=== PATIENT | female | born 1975 | race Caucasian/White ===

== ENCOUNTER → 2016-05-29 | Outpatient (CLI) | payer BC ==
[~2016-05-29] MED LIST: DULO60CA6 PO; FLUO20CA25; PREN1TAB39; TRINESSA PO
--- NOTE | 2016-05-29 19:18 | Diagnostic Imaging Report ---
EXAMINATION: Digital mammogram bilateral screening. INDICATION: Screening. This is the patient's baseline study. At this time, there are no current complaints. The current study was also evaluated with a Computer Aided Detection (CAD) system. FINDINGS: The fibroglandular tissue in both breasts is dense. This does limit the sensitivity of this exam. On the craniocaudad view of the left breast in the mid lateral portion of the breast, roughly 7 cm from the nipple, there is a 2 cm rounded density. This appears to be in the superior portion of the breast on the MLO view. There is another smaller 1.2 cm bilobed nodular density in the medial retroareolar region of the right breast. I suspect that these findings are related to cysts. Even so, as there are no prior studies available for comparison, I would recommend that compression views of both of these areas be obtained in the CC and MLO projections for further study. Ultrasound should also be performed. The right breast is unremarkable. IMPRESSION: Additional mammographic views and ultrasound of the left breast should be obtained for further study. ACR BI-RADS Category 0: Incomplete. (Needs additional imaging evaluation). Result letter will be mailed to the patient. Note: At least 10% of breast cancer is not imaged by mammography. Dictated by: Dictated on workstation # [id number]
== END ==
LOC: RAD 07:00
PROVIDERS: ATTEND Family Medicine
DX: Z12.31 Encounter for screening mammogram for malignant neoplasm of breast (principal)
CPT/HCPCS: 77067

== ENCOUNTER → 2016-06-04 | Outpatient (CLI) | payer BC ==
--- NOTE | 2016-06-04 08:47 | Diagnostic Imaging Report ---
Left breast ultrasound. INDICATION: Left breast asymmetries seen on mammography. FINDINGS: At 1:30 o'clock position 2 cm from the nipple, there is a 1.6 x 0.8 x 1.2-cm hypoechoic lesion with lobulated margins. There is no definite internal vascularity seen. There is slight heterogeneity seen in its echotexture. This could be a fibroadenoma. At 1:30 o'clock position 6 cm from the nipple, there is a 2.3 x 1.6 x 2.0-cm lobulated hypoechoic lesion. This could be a complicated cyst; however, through transmission is not well demonstrated. No internal blood flow with color Doppler is seen. The four quadrants and retroareolar region otherwise demonstrate no other lesions. IMPRESSION: Indeterminate lesions, one located at 10:30 o'clock position 2 cm from the nipple favored to be a fibroadenoma and another lesion at 1:30 o'clock position 6 cm from the nipple questioned to be a complicated cyst versus fibroadenoma. The features are not definitive, and ultrasound-guided biopsy evaluation is recommended. The findings were discussed personally with the patient. ACR BI-RADS Category 4A: Low suspicion of malignancy. Result letter will be mailed to the patient. Note: At least 10% of breast cancer is not imaged by mammography. Report was stat faxed to office of Dr. Gentile @ 9:45 AM/brittany. Dictated by: Dictated on workstation # [id number]
--- NOTE | 2016-06-04 14:22 | Diagnostic Imaging Report ---
Left breast diagnostic mammogram. The current study was also evaluated with a Computer Aided Detection (CAD) system. INDICATION: Two asymmetries seen on the mammogram from 05/29/2016. FINDINGS: Focal asymmetries are evaluated with focal compression views and lateral views. These appear to correlate with circumscribed nodules in the central aspect of the left breast. These are partially obscured however by adjacent fibroglandular tissues. IMPRESSION: Underlying lesions are partially obscured by adjacent dense parenchyma. The visualized portion of the margin on these lesions is circumscribed in favor of benign etiology. Ultrasound evaluation pending. ACR BI-RADS Category 0: Incomplete. (Needs additional imaging evaluation). Result letter will be mailed to the patient. Note: At least 10% of breast cancer is not imaged by mammography. Dictated by: Dictated on workstation # [id number]
== END ==
LOC: RAD 07:23
PROVIDERS: ATTEND Family Medicine
DX: R92.8 Other abnormal and inconclusive findings on diagnostic imaging of breast (principal)
CPT/HCPCS: 76641

== ENCOUNTER → 2016-06-12 | Outpatient (CLI) | payer BC ==
[~2016-06-12] VITALS: Ht 172.7 cm; Wt 106.6 kg
[~2016-06-12] MED LIST changes: +LIDOCAINE 1% INJ 20 ML (XYLOCAINE) VIAL INJ ONE; +LIDOCAINE 1% INJ 20 ML (XYLOCAINE) VIAL ONE
[2016-06-12 10:04] VITALS: BP 128/87
--- NOTE | 2016-06-12 14:35 | Diagnostic Imaging Report ---
EXAMINATION: Ultrasound-guided biopsy of a breast mass. A metallic clip placed to steve biopsy site. INDICATION: Left breast mass. One lesion is at 10:30 o'clock position and the another lesion is the at the 1:30 position, both appear solid and indeterminate. CONSENT: Informed consent was obtained from the patient. The risks, benefits, potential complications and alternatives were reviewed and all questions answered to the patient's satisfaction. FINDINGS: Ultrasound images demonstrate a 10:30 o'clock position left breast mass at 2 CM from the nipple. PROCEDURE: After sterile preparation and draping, 1% lidocaine was utilized for local anesthesia. A 13-gauge guide needle was introduced under live ultrasound guidance to the level of the lesion. Good needle position was documented with ultrasound images. 14-gauge biopsy needle was utilized and core biopsies were performed. Multiple samples were obtained and sent to pathology. A metallic clip was placed to steve the site of the biopsy. A subsequent mammogram is performed and confirms the proper positioning of the clip. The patient tolerated the procedure well with no immediate complications. IMPRESSION: Successful ultrasound-guided core biopsy of 10:30 o'clock position, 2 CM from the nipple, left breast mass. Dictated by: Dictated on workstation # [id number]
--- NOTE | 2016-06-12 14:41 | Diagnostic Imaging Report ---
EXAMINATION: Ultrasound-guided biopsy of a breast mass. A metallic clip placed to steve biopsy site. INDICATION: Left breast masses. One lesion is at 10:30 o'clock position and the another lesion is the at the 1:30 position, both appear solid and indeterminate. CONSENT: Informed consent was obtained from the patient. The risks, benefits, potential complications and alternatives were reviewed and all questions answered to the patient's satisfaction. FINDINGS: Ultrasound images demonstrate a solid mass at 1:30 o'clock position 6 CM from the nipple.. PROCEDURE: After sterile preparation and draping, 1% lidocaine was utilized for local anesthesia. A 13-gauge guide needle was introduced under live ultrasound guidance to the level of the lesion. Good needle position was documented with ultrasound images. 14-gauge biopsy needle was utilized and core biopsies were performed. Multiple samples were obtained and sent to pathology. A metallic clip was placed to steve the site of the biopsy. A subsequent mammogram is performed and confirms the proper positioning of the clip. The patient tolerated the procedure well with no immediate complications. IMPRESSION: Successful ultrasound-guided core biopsy of 1:30 o'clock position left breast mass. Dictated by: Dictated on workstation # [id number]
--- NOTE | 2016-06-27 22:39 | Diagnostic Imaging Report ---
EXAM: CC and lateral views of the left breast. INDICATION: Documentation of clip position after ultrasound-guided biopsy of a lesion at 1:30 o'clock position. FINDINGS: Satisfactory clip position is the seen within mass in the central lateral aspect of the left breast. Pathology results are pending. IMPRESSION: BI-RADS 0. ACR BI-RADS Category 0: Incomplete. (Needs additional imaging evaluation). Result letter will be mailed to the patient. Note: At least 10% of breast cancer is not imaged by mammography. Dictated by: Dictated on workstation # [id number]
== END ==
LOC: RAD 09:45
PROVIDERS: ATTEND Family Medicine
DX: N63 Unspecified lump in breast (principal)
CPT/HCPCS: 19083; 19084; 88305

== ENCOUNTER → 2016-11-29 | Outpatient (CLI) | payer BC ==
[~2016-11-29] MED LIST changes: -LIDOCAINE 1% INJ 20 ML (XYLOCAINE) VIAL INJ ONE; -LIDOCAINE 1% INJ 20 ML (XYLOCAINE) VIAL ONE
--- NOTE | 2016-11-29 22:04 | Diagnostic Imaging Report ---
Left breast diagnostic mammogram. The current study was also evaluated with a Computer Aided Detection (CAD) system. INDICATION: Six-month follow-up exam after biopsy. COMPARISON: 06/12/2016. FINDINGS: The left breast is composed of heterogeneously dense parenchyma which may decrease mammographic sensitivity. There are 2 biopsy clips seen at the site of nodules noted without significant change. These are biopsy-proven fibroadenomas. 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 Annual screening mammogram is recommended. ACR BI-RADS Category 2: Benign findings. Result letter will be mailed to the patient. Note: At least 10% of breast cancer is not imaged by mammography. Dictated by: Dictated on workstation # [id number]
== END ==
LOC: RAD 07:06
PROVIDERS: ATTEND Family Medicine
DX: D24.2 Benign neoplasm of left breast (principal)

== ENCOUNTER → 2017-05-07 | Outpatient (CLI) | payer BC ==
[~2017-05-07] MED LIST changes: +CATHETER FLUSH 10 ML SYR IV PRN; +IOHEXOL 350 MG/ML 100 ML (OMNIPAQUE 350) VIAL IV ONE; +NS 250 ML (IVPB) BAG IV ONE
--- NOTE | 2017-05-07 14:38 | Diagnostic Imaging Report ---
EXAMINATION: Bilateral breast ultrasound, limited. INDICATION: Left breast mass, right breast pain. FINDINGS: The diagnostic mammogram performed earlier today did suggest that one of the masses in the midportion of the left breast had increased in size slightly since the prior exam of 06/12/2016. The previous left breast ultrasound exam performed on 06/04/2016 noted two similar appearing hypoechoic masses within the left breast. This included a 1.6 x 0.8 x 1.2 cm hypoechoic lesion in the 1:30 position roughly 2 cm from the nipple. This hypoechoic lesion was subsequently biopsied using ultrasound guidance on 06/12/2016 and proved to represent a fibroadenoma. That finding is again evident on this study and does not seem to have changed significantly in size. This lesion now measures 1.2 cm. This lesion does contain a clip. The other hypoechoic lesion seen on the prior exam measuring 2.3 x 1.6 x 2.0 cm located in the 1:30 position of the breast roughly 6 cm from the nipple does measure somewhat greater on this exam. This finding is now estimated to be 2.6 x 2.1 x 2.3 cm. I do suspect that this is a benign process and this may well represent another fibroadenoma. Even so, I would recommend that an ultrasound guided biopsy of this lesion be performed for further study. During the course of the exam, a small 0.3 x 0.4 cm rounded hypoechoic lesion was seen in the 6 o'clock position of the left breast roughly 4 cm from the nipple. This was not clearly evident on the prior exam. This lesion is avascular and I suspect it is either a small slightly complicated cyst or a small solid lesion. I would recommend that a 6 month followup ultrasound exam of this finding be performed for further evaluation. The patient does have pain in the right axilla. There is no discrete solid or cystic mass in the right axilla to account for the patient's pain. There is no sign of an abscess either. IMPRESSION: 1. The previously biopsied solid lesion in the 1:30 position of the breast appears stable. This was proven to represent a fibroadenoma. 2. The hypoechoic lesion in the 1:30 position of the breast roughly 6 cm from the nipple has increased in size. This may also represent a fibroadenoma but an ultrasound guided biopsy would be recommended to confirm this. 3. There is a small subcentimeter hypoechoic area in the 6 o'clock position. Recommendations as above. 4. There is no acute abnormality in the right axilla. 5. These results were discussed with Dr. Shorty Gentile. ACR BI-RADS Category 4: Suspicious abnormality. Dictated on workstation # [id number]
--- NOTE | 2017-05-08 19:38 | Diagnostic Imaging Report ---
EXAMINATION: Bilateral diagnostic mammogram. INDICATION: Left breast lump. COMPARISON: This study was compared to the prior exams of 11/29/2016 and 05/29/2016. At this time, the patient does complain of a lump in the upper-outer aspect of the left breast. The current study was also evaluated with a Computer Aided Detection (CAD) system. FINDINGS: The previous left diagnostic mammogram of 06/04/2016 noted focal asymmetries in the left breast. The ultrasound exam performed on the same day noted a 1.6 x 0.8 x 1.2 cm hypoechoic lesion in the 1:30 position of the breast, roughly 2 cm from the nipple. There was a second lesion in the 1:30 position, roughly 6 cm from the nipple measuring 2.3 x 1.6 x 2.0 cm. Both of these lesions were biopsied using ultrasound guidance. The lesion in the 1:30 position of the breast, roughly 6 cm from the nipple, was diagnosed as either a fibroadenoma or a benign phyllodes tumor. The lesion in the retroareolar region of the breast was diagnosed as a hyalinized fibroadenoma. On this exam, the nodular density in the 1:30 position of the breast, roughly 6 cm from the nipple, does seem slightly larger. The other nodular density is no different. The fibroglandular tissue in both breasts is heterogeneously dense. This does limit the sensitivity of this exam. There is no primary or secondary sign of malignancy noted otherwise. IMPRESSION: 1. The nodular density in the left breast in the 1:30 position, roughly 6 cm from the nipple, does seem slightly larger than on the prior exam. Ultrasound would be recommend for further evaluation. 2. The nodular density in the retroareolar region of the left breast is essentially no different. 3. The right breast is stable. ACR BI-RADS Category 0: Incomplete. (Needs additional imaging evaluation). Result letter will be mailed to the patient. Note: At least 10% of breast cancer is not imaged by mammography. Dictated on workstation # [id number]
== END ==
LOC: RAD 12:48
PROVIDERS: ATTEND Family Medicine
DX: D24.2 Benign neoplasm of left breast (principal)
CPT/HCPCS: 76642; 77066

== ENCOUNTER → 2017-05-12 | Outpatient (CLI) | payer BC ==
[~2017-05-12] VITALS: Ht 172.7 cm; Wt 106.6 kg
[~2017-05-12] MED LIST changes: -CATHETER FLUSH 10 ML SYR IV PRN; -IOHEXOL 350 MG/ML 100 ML (OMNIPAQUE 350) VIAL IV ONE; +LIDOCAINE 1% INJ 20 ML (XYLOCAINE) VIAL INJ ONE; +LIDOCAINE 1% INJ 50 ML (XYLOCAINE) VIAL ONE; -NS 250 ML (IVPB) BAG IV ONE
[2017-05-12 14:35] VITALS: BP 130/81
[2017-05-12 15:01] VITALS: BP 118/78
--- NOTE | 2017-05-12 19:59 | Diagnostic Imaging Report ---
INDICATION: Left breast mass. Patient presents for ultrasound-guided core biopsy. The patient was brought to the procedure room and placed on the table in the supine position. Ultrasound imaging over the left breast was performed to evaluate appropriate entry site. Skin of the left breast was prepped and draped in usual sterile fashion. Small amount of 1% lidocaine was utilized for local anesthesia. A 14-gauge Achieve needle was advanced and placed with its tip adjacent to the hypoechoic mass at the 1:30 location of the left breast. Total of 4 core biopsies were obtained. In addition, the S-shaped localizer clip was deployed within the mass. Needle was withdrawn and hemostasis was obtained utilizing manual compression. The patient tolerated the procedure well and left the department in stable condition. IMPRESSION: Successful ultrasound-guided core biopsy of the dominant solid mass at the 1:30 location of the left breast. Pathology results are currently pending. Dictated by: Dictated on workstation # [id number]
== END ==
LOC: RAD 14:20
PROVIDERS: ATTEND Family Medicine
DX: D24.2 Benign neoplasm of left breast (principal)
CPT/HCPCS: 19083

== ENCOUNTER → 2018-03-27 | Outpatient (CLI) | payer BC ==
[~2018-03-27] MED LIST changes: -LIDOCAINE 1% INJ 20 ML (XYLOCAINE) VIAL INJ ONE; -LIDOCAINE 1% INJ 50 ML (XYLOCAINE) VIAL ONE
--- NOTE | 2018-03-27 18:36 | Diagnostic Imaging Report ---
EXAMINATION: Left foot, single view. Left first digit, 2 additional views. COMPARISON: None. HISTORY: 42-year-old female, left great toe and loss of range of motion. Swelling and redness at the level of the first metatarsophalangeal joint. FINDINGS: There is a bipartite medial sesamoid. There is mild joint space loss of the first metatarsophalangeal joint with mild osteophyte formation. There is no identified bone erosion. There is no cortical or aggressive bone destruction. There is no periosteal reaction. There is no identified radiopaque foreign body. There is normal variant congenital fusion of the fifth digit middle and distal phalanges. Additional joint spaces of the left foot appear well preserved. There is no identified soft tissue calcification. There is no identified acute fracture. There is no subluxation or dislocation. IMPRESSION: 1. Mild osteoarthritis of the first metatarsophalangeal joint. 2. Additional joint spaces of the left foot are unremarkable. 3. No identified acute bony abnormality. Dictated by: Dictated on workstation # [id number]
== END ==
LOC: RAD 13:25
PROVIDERS: ATTEND Family Medicine
DX: M19.072 Primary osteoarthritis, left ankle and foot (principal)
CPT/HCPCS: 73660

== ENCOUNTER → 2018-11-20 | Outpatient (CLI) | payer BC ==
--- NOTE | 2018-11-23 10:05 | Diagnostic Imaging Report ---
Digital mammogram, bilateral screening. The study was compared to the prior exams dated 05/07/2017, 11/29/2016 and 05/29/2016. At this time, there are no current complaints. The fibroglandular tissue of both breasts is heterogeneously dense. This limits the sensitivity of this exam. The previous exam of 05/07/2017 noted 2 focal asymmetries in the left breast. 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 On this exam, those nodular densities do seem somewhat larger. I do suspect that they are benign but I would recommend an ultrasound exam be performed for further study. The previous ultrasound exam of 05/07/2017 also suggested a small 0.3 x 0.4 cm rounded hypoechoic lesion in the 6 o'clock position of the left breast. A six-month followup ultrasound exam was recommended to better evaluate this finding but that ultrasound exam was not performed to my knowledge. Consequently the lesion at the 6 clock position could also be further evaluated. The stereotactic clip in the retroareolar region of the left breast is again evident and no different. In the midportion of the right breast approximately 8 cm from nipple there is a small area of increased density on the craniocaudad view. This finding is difficult to identify with certainty on the MLO view and may merely be secondary to superimposition of fibroglandular tissue. On the MLO view there are possible corresponding areas of increased density both superior and inferior to the nipple. I would recommend this area be compressed in the MLO and CC projections for further evaluation. Ultrasound should also be performed. Impression: Additional mammographic views of the right breast and ultrasound of both breasts would be recommended for further evaluation. ACR BI-RADS Category 0: Incomplete. (Needs additional imaging evaluation). Result letter will be mailed to the patient. Note: At least 10% of breast cancer is not imaged by mammography. Dictated by: Dictated on workstation # [id number]
== END ==
LOC: RAD 15:34
PROVIDERS: ATTEND Family Medicine
DX: Z12.31 Encounter for screening mammogram for malignant neoplasm of breast (principal)
CPT/HCPCS: 77067

== ENCOUNTER → 2018-12-03 | Outpatient (CLI) | payer BC ==
--- NOTE | 2018-12-03 10:40 | Diagnostic Imaging Report ---
INDICATION: Right breast density. Patient presents for additional views. COMPARISON: Correlation is made with the recent screening study from 11/20/2018. TECHNIQUE: 2D and 3D unilateral right diagnostic mammography was performed with CAD. This included spot compression CC and ML views as well as a conventional 90 degree lateral view. FINDINGS: The additional views fail to demonstrate a discrete mass. The area of focal density on the right CC view screening study resolves and most likely represents fibroglandular tissue. No suspicious calcifications are seen. IMPRESSION: 1. The right breast density most likely represents fibroglandular tissue. 2. The patient will undergo a left breast ultrasound today to further evaluate the areas of previously described nodularity in the left breast. ACR BI-RADS Category 0: Incomplete. (Needs additional imaging evaluation). Result letter will be mailed to the patient. Note: At least 10% of breast cancer is not imaged by mammography. Dictated by: Dictated on workstation # [id number]
--- NOTE | 2018-12-03 11:14 | Diagnostic Imaging Report ---
INDICATION: Left breast nodules. Correlation is made with prior left breast ultrasound from 05/07/2017. There is an ovoid, circumscribed hypoechoic solid nodule 11:00 location of the left breast 2 cm from the nipple. This measures 1.5 x 0.8 x 1.2 cm. This compares with 1.4 x 0.8 x 1.2 cm. This does contain a biopsy clip. Large macrolobulated solid mass 1:30 location of the left breast 6 cm from the nipple is again noted. This is slightly larger on today's study measuring 3.2 x 2.4 x 2.6 cm compare with 2.6 x 2.1 x 2.3 cm. This has been previously biopsied and shown to represent a fibroadenoma. There is a small cyst 6:00 location of the lateral left breast 4 cm from the nipple measuring 4 mm x 2 mm. Additional cyst 9:00 location is seen measuring 4 mm x 3 mm. No other masses are detected. IMPRESSION: BI-RADS Category 2 Left breast solid masses and cysts, as described. Solid masses have been previously biopsied and shown to represent fibroadenomas. The larger lesion is slightly larger at 1:30 location. ACR BI-RADS Category 2: Benign findings. Dictated by: Dictated on workstation # [id number]
== END ==
LOC: RAD 09:39
PROVIDERS: ATTEND Family Medicine
DX: N63.21 Unspecified lump in the left breast, upper outer quadrant (principal); R92.2 Inconclusive mammogram
CPT/HCPCS: 76642

== ENCOUNTER → 2019-10-22 | Outpatient (CLI) | payer BC ==
--- NOTE | 2019-10-25 09:27 | Diagnostic Imaging Report ---
Angelica Blakely Bilateral mammograms. INDICATION: Screening comparison made with prior examination of 11/20/2018, 05/07/2017 and 05/29/2016 FINDINGS: The fibroglandular tissue is heterogeneously dense bilaterally. There are numerous surgical clips in left breast. There are a few scattered benign type calcifications. There is an unchanged well-circumscribed density in the central left breast which appeared to have been previously biopsied. There are no other new dominant mass, spiculated lesions or suspicious calcification identified. Skin and nipples and axilla are unremarkable. IMPRESSION: Category 2 benign. ACR BI-RADS Category 2: Benign findings. Result letter will be mailed to the patient. Note: At least 10% of breast cancer is not imaged by mammography. Dictated by: Dictated on workstation # [id number]
== END ==
LOC: RAD 14:50
PROVIDERS: ATTEND Family Medicine
DX: Z12.31 Encounter for screening mammogram for malignant neoplasm of breast (principal)
CPT/HCPCS: 77063; 77067

== ENCOUNTER → 2020-09-01 | Outpatient (CLI) | payer BC | LOC: CARD 13:32 | PROVIDERS: ATTEND Family Medicine | DX: R06.00 Dyspnea, unspecified (principal) | CPT/HCPCS: 93005 ==

== ENCOUNTER → 2020-10-27 | Outpatient (CLI) | payer BC ==
--- NOTE | 2020-10-31 12:40 | Diagnostic Imaging Report ---
Indication: Routine screening. Comparison is made with prior mammogram 10/22/2019 and 11/20/2018. 2-D and 3-D bilateral screening mammography was performed with CAD. Both breasts are heterogeneously dense, limiting the sensitivity of mammography. Circumscribed mass in the central left breast is again noted, circumscribed mass in the retroareolar left breast is again noted. These masses contain biopsy marker clips from prior biopsies. Benign calcifications are noted. No spiculated mass or malignant-appearing microcalcifications are seen. Axillae are unremarkable. IMPRESSION: BI-RADS Category 2 No mammographic features suspicious for malignancy are identified. ACR BI-RADS Category 2: Benign findings. Result letter will be mailed to the patient. Note: At least 10% of breast cancer is not imaged by mammography. Dictated on workstation # [id number]
== END ==
LOC: RAD 15:45
PROVIDERS: ATTEND Family Medicine
DX: Z12.31 Encounter for screening mammogram for malignant neoplasm of breast (principal)
CPT/HCPCS: 77063; 77067

== ENCOUNTER 2021-03-15 05:31 | Outpatient (RCR) | payer BC ==
[~2021-03-15] VITALS: Ht 172.7 cm; Wt 81.8 kg
[~2021-03-15 05:31] MED LIST changes: +BUPR150T24 PO; +BUPR300T98 PO; +CALC-654 PO; +MULT-1136 PO; +OMG1KC PO; +THYR120T2 PO
== END 2021-03-15 10:57 | disposition home or self-care (01) ==
LOC: PREOP 05:31
PROVIDERS: ATTEND Podiatrist Foot & Ankle Surgery
DX: Z01.812 Encounter for preprocedural laboratory examination (principal); Z20.822 Contact with and (suspected) exposure to COVID-19
CPT/HCPCS: 87635

== ENCOUNTER 2021-03-19 08:12 | Day surgery (SDC) | payer BC ==
[2021-03-19] VITALS (10 sets, daily range): BP systolic 92–127; BP diastolic 50–90
[~2021-03-19] VITALS: Ht 172.7 cm; Wt 81.8 kg
[2021-03-19] MEDS ORDERED: ceFAZolin INJECTION 1,000 MG VIAL IV ONE (08:30)
[2021-03-19] MEDS ORDERED: LIDOCAINE 1% INJ 20 ML VIAL ONE (09:13)
[2021-03-19] MEDS: LACTATED RINGERS 1,000 ML IV PRN ×2 (09:17→10:17)
[2021-03-19] MEDS ORDERED: proPOfol 200 MG/20 ML (DIPRIVAN) VIAL IV ONE (09:26)
[2021-03-19] MEDS ORDERED: ONDANSETRON 4 MG/2 ML (SDV) Z0FRAN ONE (09:26)
[2021-03-19] MEDS ORDERED: LIDOCAINE PF 2% 5 ML (XYLOCAINE) VIAL ONE (09:26)
[2021-03-19] MEDS ORDERED: MIDAZOLAM 2 MG/2 ML (VERSED) VIAL ONE (09:27)
[2021-03-19] MEDS ORDERED: fentaNYL INJ 100 MCG/2 ML AMP ONE (09:27)
--- NOTE | 2021-03-19 09:29 | Progress Note-Pre Operative ---
Pre-Operative Progress Note H&P Reviewed The H&P was reviewed, patient examined and no changes noted. Date Seen by Provider: Mar 19, 2021 Time Seen by Provider: : Date H&P Reviewed: Mar 19, 2021 Time H&P Reviewed: : Pre-Operative Diagnosis: Fracture of the left 5th metatarsal, Hallux Limitus left VIOLA HAMLIN DPM Mar 19, 2021 09:29
[2021-03-19] MEDS ORDERED: SEVOFLURANE (ULTANE) 15 ML INHAL SOLN ONE ×2 (11:02→11:08)
[2021-03-19] MEDS: BUPIVACAINE 0.5% 30 ML (SENSORCAINE) VIAL ONE ×2 (11:07→11:11)
[2021-03-19] MEDS ORDERED: BUPIVACAINE 0.5% 30 ML (SENSORCAINE) VIAL ONE (11:08)
--- NOTE | 2021-03-19 11:17 | Progress Note-Post Operative ---
Post-Operative Progess Note Surgeon (s)/Blog Writer (s) Surgeon VIOLA HAMLIN DPM Blog Writer: none Pre-Operative Diagnosis Fracture of the left 5th metatarsal, Hallux Limitus left Post-Operative Diagnosis Same Procedure & Operative Findings Date of Procedure 03/19/21 Procedure Performed/Findings ORIF left 5th metatarsal, Cheilectomy, left Anesthesia Type General Estimated Blood Loss Estimated blood loss (mL): Minimal Specimens/Packing Specimens Removed osteophyte, left 1st metatarsal head VILOA HAMLIN DPM Mar 19, 2021 11:17
[2021-03-19] MEDS ORDERED: CEPH500C PO (11:22)
[2021-03-19] MEDS ORDERED: ACHD5005 PO (11:22)
[2021-03-19] MEDS ORDERED: HYDROcodone/APAP 5 MG/325 MG (LORTAB) TAB PO PRN (11:30)
[2021-03-19] MEDS ORDERED: LACTATED RINGERS 1,000 ML IV SCH (11:30)
--- NOTE | 2021-03-19 12:31 | Diagnostic Imaging Report ---
CLINICAL HISTORY: Postop. Followup. COMPARISON: 03/27/2018. TECHNIQUE: 2 views of the left foot. FINDINGS: A surgical screw is seen traversing a fracture involving the proximal aspect of the left 5th metatarsal. Alignment is near anatomic. Soft tissue edema is seen along the lateral aspect of the left foot. No new fractures are identified. IMPRESSION: 1. Postsurgical changes of open reduction and internal fixation of the left 5th metatarsal. Alignment is near anatomic. Dictated by: Dictated on workstation # [id number]
[2021-03-19] MEDS ORDERED: HYDROcodone/APAP 5 MG/325 MG (LORTAB) TAB ONE (12:35)
--- NOTE | 2021-03-19 12:59 | Diagnostic Imaging Report ---
INDICATION: Fluoroscopy during left foot surgery. Fluoroscopy was provided in the OR during left foot surgery. 13 seconds of fluoroscopic time was utilized. Single image was obtained demonstrating a screw transfixing the 5th metatarsal. IMPRESSION: Fluoroscopy during left foot ORIF. Dictated by: Dictated on workstation # [id number]
--- NOTE | 2021-03-19 15:21 | Anesthesia-General Post-Op ---
MAC Patient Condition Mental Status/LOC: Same as Preop Cardiovascular: Satisfactory Nausea/Vomiting: Absent Respiratory: Satisfactory Pain: Controlled Complications: Absent Post Op Complications Complications None Follow Up Care/Instructions Patient Instructions None needed. Anesthesiology Discharge Order Discharge Order Patient is doing well, no complaints, stable vital signs, no apparent adverse anesthesia problems. No complications reported per nursing. MELINDA OSUNA CRNA Mar 19, 2021 15:21
--- NOTE | 2021-03-19 15:53 | OPERATIVE REPORT ---
DATE OF SERVICE: 03/19/2021 SURGEON: Padmaja Sotomayor DPM PREOPERATIVE DIAGNOSES: 1. Fractured left fifth metatarsal, left foot. 2. Hallux limitus, left foot. POSTOPERATIVE DIAGNOSIS: 1. Fractured left fifth metatarsal, left foot. 2. Hallux limitus, left foot. PROCEDURE: 1. Open reduction and internal fixation of left fifth metatarsal fracture. 2. Cheilectomy, left foot. WOUND CLASS: Clean. ANESTHESIA: General. HEMOSTASIS: Pneumatic thigh tourniquet at 250 mmHg. INDICATIONS: This 45-year-old female presents complaining of a painful left foot. Conservative therapy is met with unsatisfactory results and the patient is agreeable to surgical intervention after risks and complications were discussed at length. No guarantees were extended to the patient and she is willing to proceed. DESCRIPTION OF PROCEDURE: The patient was brought back to the operating table, placed in secure supine position. Appropriate timeout was performed. Pneumatic thigh tourniquet was placed on the left lower extremity over several layers of padding. General anesthetic was induced. The left foot was then prepped and draped in normal sterile manner. The left foot was anesthetized with local utilizing 10 mL of 0.5% Marcaine plain injected in a Melendez block as well as a local infusion to the fifth metatarsal base, left foot. The left foot was then elevated, allowed to exsanguinate after which the tourniquet was inflated to 250 mmHg. Attention was then directed to the lateral aspect of the left 5th metatarsal base where a 5 cm longitudinal linear incision was created. The incision was deepened in the same plane with great care to identify and retract all vital neurovascular structures. The incision was deepened down to the periosteum where a longitudinal incision was made. Subperiosteal dissection was carried out. The fracture site was identified. The medial aspect of the fracture was well consolidated. The lateral aspect of the fracture site had some consolidation and healing yet to be performed. This area was cleaned by a curettage and utilizing a freer. The area was flushed with copious amounts of normal saline. Overall, alignment was satisfactory. It was then decided that an intramedullary screw would be appropriate. Utilizing the Supai 28 fifth metatarsal base screw system, a K-wire was placed down the medullary canal from posterior to anterior. This was done in conjunction with intraoperative C-arm. Next, a 5.0 cannulated screw of 50 mm in length was then placed over the K-wire and then securing the fifth metatarsal base in a closed position. Internal fixation was solid and appreciated good anatomical alignment at this time. This was confirmed by intraoperative C-arm. The K-wire was then removed or the guidewire was then removed. The wound was flushed with copious amounts of normal saline and closure was then performed in layers. Deep closure was performed with 3-0 Vicryl, superficial with 4-0 Vicryl, skin closure with 4-0 Prolene in a horizontal mattress type stitch. Attention was then directed to the dorsal aspect of the left first metatarsophalangeal joint where a 5 cm longitudinal linear incision was created. The incision was deepened in the same plane with great care to identify and retract any vital neurovascular structures. Only necessary blood vessels were cauterized as encountered. The incision was deepened down to the capsule where a longitudinal capsulotomy was performed. The capsular tissue was reflected mediolaterally exposing a hypertrophic dorsal eminence to the first metatarsal head grossly identified to be an osteophyte or bone spur. This was resected utilizing a power sagittal saw. Next, utilizing a 1 mm drill, fenestration was performed to the dorsal lateral aspect of the first metatarsal head, which was devoid of articular cartilage. The area was flushed with copious amounts of normal saline. The head of the first metatarsal was further contoured and smoothed with a power bur. Good range of motion was appreciated at this time to the first metatarsophalangeal joint. The wound was flushed once again with copious amounts of normal saline, after which closure was performed in layers. Deep closure was performed with 3-0 Vicryl, superficial with 4-0 Vicryl, skin closure with 4-0 Prolene in a horizontal mattress type stitch. Postoperative injection consisted of 17 mL of 0.5% Marcaine injected in a local infusion to the surgical sites followed by a 10 mg dexamethasone injected into the first metatarsophalangeal joint area of the left foot. Postoperative dressing consisted of Betadine soaked Adaptic, sterile 4 x 4, sterile Kerlix, all secured with Coban wrap. The patient tolerated the anesthesia and procedure well and was transported from the operating room to the recovery area with vital signs stable and vascular status intact to all digits of the left foot. The patient was given a prescription for hydrocodone as well as Keflex. She is to follow up in my office in 10 days' period of time or sooner if necessary. Job ID: [id number] DocumentID: [id number] Dictated Date: 03/19/2021 11:31:13 Computer Applications Engineer Date: 03/19/2021 15:51:58 Dictated By: SANCHEZ RIVERA
== END 2021-03-19 13:17 | disposition home or self-care (01) ==
LOC: SDC 08:12
PROVIDERS: ATTEND Podiatrist Foot & Ankle Surgery
DX: S92.352A Displaced fracture of fifth metatarsal bone, left foot, initial encounter for closed fracture (principal); M20.5X2 Other deformities of toe(s) (acquired), left foot; E03.9 Hypothyroidism, unspecified; F32.A Depression, unspecified; Z87.891 Personal history of nicotine dependence; Z79.899 Other long term (current) drug therapy
CPT/HCPCS: 28289; 28485; 73620; 76000; 84703; 87081; C1713 ×3

== ENCOUNTER → 2021-11-23 | Outpatient (CLI) | payer BC ==
[~2021-11-23] MED LIST changes: +ACHD5005 PO; +CEPH500C PO
--- NOTE | 2021-11-26 09:24 | Diagnostic Imaging Report ---
INDICATION: Routine screening. COMPARISON: 10/27/2020 and 10/22/2019. TECHNIQUE: 2D and 3D bilateral screening mammography was performed with CAD. FINDINGS: Both breasts are heterogeneously dense, limiting the sensitivity of mammography. The circumscribed masses in the left breast containing marker clips are again noted and appear stable. There are benign calcifications. No spiculated mass or malignant-appearing microcalcifications are seen. The axillae are unremarkable. IMPRESSION: No mammographic features suspicious for malignancy are identified. ACR BI-RADS Category 2: Benign findings. Result letter will be mailed to the patient. Note: At least 10% of breast cancer is not imaged by mammography. Dictated by: Dictated on workstation # [id number]
== END ==
LOC: RAD 15:19
PROVIDERS: ATTEND Obstetrics & Gynecology
DX: Z12.31 Encounter for screening mammogram for malignant neoplasm of breast (principal)
CPT/HCPCS: 77063; 77067

== ENCOUNTER → 2022-07-26 | Outpatient (CLI) | payer BC | LOC: CARD 14:30 | PROVIDERS: ATTEND Family Medicine | DX: R01.1 Cardiac murmur, unspecified (principal) | CPT/HCPCS: 93306 ==

== ENCOUNTER → 2022-11-29 | Outpatient (CLI) | payer BC ==
--- NOTE | 2022-11-29 16:36 | Diagnostic Imaging Report ---
INDICATION: Routine screening. COMPARISON: 11/23/2021 and 10/27/2020. TECHNIQUE: 2D and 3D bilateral screening mammography was performed with CAD. FINDINGS: Both breasts are heterogeneously dense, limiting the sensitivity of mammography. The parenchymal pattern is stable. The dominant mass in the upper left breast with marker clips appears to be stable. No new mass is identified. No malignant-appearing microcalcifications are seen. The axillae are unremarkable. IMPRESSION: No mammographic features suspicious for malignancy are identified. ACR BI-RADS Category 2: Benign findings. Result letter will be mailed to the patient. Note: At least 10% of breast cancer is not imaged by mammography. Dictated on workstation # [id number]
== END ==
LOC: RAD 14:29
PROVIDERS: ATTEND Obstetrics & Gynecology
DX: Z12.31 Encounter for screening mammogram for malignant neoplasm of breast (principal)
CPT/HCPCS: 77063; 77067